=== PATIENT | male | born 1980 | race Hispanic/Latino ===

== ENCOUNTER → 2024-07-30 | Outpatient (CLI) | payer SELFPAY ==
[2024-07-30 16:26] LABS: CHOLESTEROL 111 mg/dL (<200); HDL CHOLESTEROL 71 mg/dL (29-71); LDL DIRECT 42 mg/dL (0-99); TRIGLYCERIDES 57 mg/dL (30-200)
== END | disposition home or self-care (01) ==
LOC: LAB 13:09
PROVIDERS: ATTEND Student in an Organized Health Care Education/Training Program
DX: E78.2 Mixed hyperlipidemia (principal)
CPT/HCPCS: 36415; 80061

== ENCOUNTER 2024-12-30 06:33 | Emergency (ER) | payer SELFPAY ==
[~2024-12-30] VITALS: Ht 185.4 cm; Wt 100.7 kg
[2024-12-30 06:34] VITALS: BP 169/99; PULSE 95; RESP 20; TEMP 98
[2024-12-30] MEDS: GABAPENTIN 300 MG CAPSULE PO ONE (07:25)
[2024-12-30 07:29] LABS: IMMATURE GRANULOCYTE ABSOLUTE 0.01 K/uL (0-1); NUCLEATED RED BLOOD CELLS 0.0 % (0.0-0.19); PLATELET COUNT (AUTO) 149 K/uL (130-400); RED BLOOD CELL COUNT(AUTO) 4.70 MIL/uL (4.50-6.20); RED CELL DISTRIBUTION WIDTH 12.0 % (11.0-15.5); WHITE BLOOD COUNT (AUTO) 5.8 K/uL (4.8-10.8)
[2024-12-30 07:36] LABS: CREATININE 0.7 mg/dL (0.5-1.3); GLOMERULAR FILTR. RATE CALC 117.0 mL/min (>90); GLUCOSE,RANDOM 126.0 mg/dL (70-105); SODIUM SERUM 140.0 mmol/L (136-145); UREA NITROGEN, BLOOD 9.0 mg/dL (7-18)
[2024-12-30] MEDS: ORPHENADRINE 60MG/2ML IM ONE (08:12)
[2024-12-30] MEDS: TRIAMCINOLONE ACETONIDE 40 MG/ML 1ML VIAL IM ONE (08:14)
--- NOTE | 2024-12-30 08:17 | ERN ---
General Chief Complaint: Lower Extremity Pain/Injury Stated Complaint: RT LEG PAIN Time Seen by MD: 07:02 Source: patient History of Present Illness Initial Comments Patient is a 44-year-old gentleman coming in complaining of right lower extremity pain. He states that the pain initiates in the right gluteal region and radiates down the right hamstring area. Patient attributes the pain to physical activity he was performed yesterday. States he was carrying some windows and doing some stretches. He states that once asleep woke up with this pain. Allergies: Coded Allergies: No Known Allergies (Unverified Allergy, Unknown, 12/30/24) Past Medical History Past Medical History: Diabetes-Type II Past Surgical History: Other Surgical History Other: CARDIAC STENT ROS Dictation CONSTITUTIONAL: No chills, no fever, no weakness, no diaphoresis, no malaise. HEAD/FACE: No signs of trauma. EENT: No eye pain, no blurred vision, no tearing, no double vision, no ear pain, no ear discharge, no nose pain, no nasal congestion, no throat pain, no throat swelling, no mouth pain. RESPIRATORY: No cough, no orthopnea, no SOB, no stridor, no wheezing. CARDIOVASCULAR: No chest pain, no edema, no palpitations, no syncope. GASTROINTESTINAL/ABDOMINAL: No abdominal pain, no constipation, no diarrhea, no nausea, no vomiting. GENITOURINARY: No abnormal discharge, no dysuria, no frequent urination, no hematuria. No complaints of pain in the genitals. MUSCULOSKELETAL: No back pain, no gout, no joint pain, no joint swelling, muscle pain, muscle stiffness, no neck pain. INTEGUMENTARY: No change in color, no change in hair/nails, no dryness, no lesion, no lumps, no rash. NEUROLOGICAL/PSYCH: No anxiety, not depressed, no emotional problem, no headache, no numbness, no pre-existing deficit, no history of seizures, no tremors, no weakness. HEMATOLOGIC/LYMPHATIC: Not anemic, no history of blood clots, no apparent bleeding, no bruising, glands not swollen. All Systems Negative, Except as Noted. Physical Exam Physical Exam Dictation VITAL SIGNS: Reviewed. GENERAL APPEARANCE: Alert, oriented x3, no acute distress, obese. HEAD AND FACE: Non-traumatic. EYES: PERRL, pink conjunctivas, eyelid no trauma, anterior chamber clear. EARS: Pinnas intact and no signs of trauma or erythema. Ear canals clear and no discharge. TMs no erythema. NOSE: No discharge, no bleeding. OROPHARYNX: Mouth normal, teeth no caries, tongue pink. Pharynx clear, no erythema. Tonsils no exudates, no abscesses noted. Mucous membrane moist. NECK: Supple, non-tender, no thyromegaly, no masses, no JVD, no bruits. BREAST: Deferred. CHEST: No tenderness, no crepitus, no paradoxical movement, no retractions. LUNGS: Clear, well-ventilated, symmetric, no rales, no wheezing, no rhonchi, no stridor, good breath sounds bilaterally. HEART: Regular rate, regular rhythm, no murmur, no gallops. VASCULAR: No peripheral edema. ABDOMEN: Soft, positive bowel sounds, nondistended, no guarding, nontender, no rebound, no masses no hepatomegaly, no splenomegaly, no Lobo's sign, no hernias. RECTAL: Deferred. GENITAL: Deferred. NEUROLOGICAL: Normal speech, gross motor function intact, gross sensory function intact. MUSCULOSKELETAL: Neck nontender, full range of motion, back nontender, full range of motion. EXTREMITIES: Nontender, full range of motion. Right piriformis muscle tenderness on palpation, pain on flexion and extension of the right hip. SKIN: Color pink, dry, no turgor, no rash, no lacerations, no abrasions, no contusions. LYMPHATICS: Deferred. Results Laboratory and Microbiology Lab and Micro Result Laboratory Tests Test 12/30/24 07:17 White Blood Count 5.8 K/uL (4.8-10.8) Red Blood Count 4.70 MIL/uL (4.50-6.20) Hemoglobin 14.2 g/dL (14.0-18.0) Hematocrit 41.3 % (42-54) L Mean Corpuscular Volume 87.9 fL (79-99) Mean Corpuscular Hemoglobin 30.2 pg (27.0-33.0) Mean Corpuscular Hemoglobin Concent 34.4 g/dL (32.0-36.0) Red Cell Distribution Width 12.0 % (11.0-15.5) Platelet Count 149 K/uL (130-400) Mean Platelet Volume 9.8 fL (7.5-10.5) Immature Granulocyte % (Auto) 0.2 % (0-1) Neutrophils (%) (Auto) 62.4 % (40.0-77.0) Lymphocytes (%) (Auto) 23.0 % (21.0-51.0) Monocytes (%) (Auto) 12.5 % (3.0-13.0) Eosinophils (%) (Auto) 1.4 % (0.0-8.0) Basophils (%) (Auto) 0.5 % (0.0-5.0) Neutrophils # (Auto) 3.6 K/uL (1.8-7.7) Lymphocytes # (Auto) 1.3 K/uL (1.0-4.8) Monocytes # (Auto) 0.7 K/uL (0.1-1.0) Eosinophils # (Auto) 0.08 K/uL (0.00-0.70) Basophils # (Auto) 0.03 K/uL (0.00-0.20) Absolute Immature Granulocyte (auto 0.01 K/uL (0-1) Nucleated Red Blood Cells 0.0 % (0.0-0.19) Sodium Level 140 mmol/L (136-145) Potassium Level 4.0 mmol/L (3.5-5.1) Chloride Level 107 mmol/L (101-111) Carbon Dioxide Level 26 mmol/L (21-32) Blood Urea Nitrogen 9 mg/dL (7-18) Creatinine 0.7 mg/dL (0.5-1.3) Glomerular Filtration Rate Calc 117 mL/min (>90) Random Glucose 126 mg/dL (70-105) H Total Calcium 8.8 mg/dL (8.5-10.1) Labs Reviewed?: Yes MDM MDM: Differential diagnosis: Sciatica of the right leg, muscle strain, muscle spasms, Rationale: Tests considered and ordered secondary to shared decision making i nclude: Previous outside records reviewed: Old ER visits. Risk of complication and/or morbidity or mortality of patient management: None Medications-Per medication reconciliation Need for hospitalization: Patient does not meet criteria for hospitalization. Patient is a 44-year-old gentleman coming in complaining of right leg pain. Per patient the pain began earlier in the morning. Patient received antispasmodics and anti-inflammatories states his symptoms improved. Patient will be discharged in stable condition with a diagnosis of right piriformis and right- sided sciatica. Medication will be provided for symptomatic relief as well for home it did advised him appropriate follow up with PCP and medical claims specialist for ongoing physical therapy for long-term management. ED Course Orders Procedure Category Date Status Time Cbc With Differential LAB 12/30/24 Complete 06:55 Basic Metabolic Panel LAB 12/30/24 Complete 06:55 Gabapentin 300 Mg Cap PHA 12/30/24 Complete (Neurontin 300 Mg 07:00 Orphenadrine Citrate PHA 12/30/24 Complete (Norflex) 08:00 Triamcinolone Acet PHA 12/30/24 Complete 40mg/Ml 1ml (Kenalog 08:00 Current Medications Medications (Trade) Dose Ordered Sig/Chiquita Route PRN Reason Start Time Stop Time Status Last Admin Dose Admin Gabapentin (NEURontin 300 MG CAP) 300 mg ONCE ONCE PO 12/30/24 07:00 12/30/24 07:01 DC 12/30/24 07:25 Orphenadrine Citrate (Norflex) 60 mg ONCE ONCE IM 12/30/24 08:00 12/30/24 08:01 DC 12/30/24 08:12 Triamcinolone Acetonide (Kenalog 40) 40 mg ONCE ONCE IM 12/30/24 08:00 12/30/24 08:01 DC 12/30/24 08:14 Vital Signs Date Time Temp Pulse Resp B/P (MAP) Pulse Ox O2 Delivery O2 Flow Rate FiO2 12/30/24 06:34 98.1 95 20 169/99 99 Room Air DX & DISP Disposition: Discharge Departure Impression: Primary Impression: Right sided sciatica Additional Impression: Piriformis muscle pain Condition: Stable Scripts Naproxen (Naproxen) 500 Mg Tablet 1 TAB PO BID for pain for 7 Days, #14 TAB 0 Refills Prov: ALANA HARRY MD 12/30/24 Methocarbamol (Robaxin) 750 Mg Tab 1 TAB PO BID for 7 Days, #14 TAB 0 Refills Prov: ALANA HARRY MD 12/30/24 Additional Instructions: FOLLOW-UP WITH PRIMARY CARE PROVIDER IN 1 TO 2 DAYS. TAKE MEDICATIONS DIRECTED HERE IN THE EMERGENCY ROOM. OKAY TO CONTINUE HOME MEDICATIONS UNLESS OTHERWISE DISCUSSED DURING YOUR VISIT IN THE EMERGENCY ROOM TODAY. RETURN TO YOUR NEAREST EMERGENCY ROOM IF SYMPTOMS WORSEN OR IF THERE IS NO IMPROVEMENT. CALL 911 IF YOU NEED IMMEDIATE ASSISTANCE. TAKE TYLENOL [id number] NEEDED AND IF NO CONTRAINDICATIONS ARE PRESENT. INCREASE ORAL HYDRATION. A WOUND CULTURE OR URINE CULTURE WAS ORDERED HERE IN THE EMERGENCY ROOM DEPARTMENT PLEASE FOLLOW-UP WITH PRIMARY CARE PROVIDER AND ADVISE THEM TO GET REPORTS FROM OUR FACILITY. IF YOU HAD ANY LUIS WRAP/SPLINTS THAT WERE APPLIED HERE, PLEASE DO NOT REMOVE THEM UNTIL YOU SEE YOUR PRIMARY CARE OR SPECIALTY. Referrals: Referrals: NONE (PCP) INGRID GONZALEZ MD, LUIS A MD Time of Disposition: 08:44 ALANA HARRY MD Dec 30, 2024 08:17
[2024-12-30] MEDS ORDERED: METH-662 PO (08:44)
[2024-12-30] MEDS ORDERED: NAPR-1194 PO (08:44)
[2024-12-30] MEDS ORDERED: METH8TAB PO (09:05)
== END 2024-12-30 09:00 | disposition home or self-care (01) ==
LOC: EDH 06:33
DX: M54.31 Sciatica, right side (principal); M79.10 Myalgia, unspecified site; E11.9 Type 2 diabetes mellitus without complications; Z95.5 Presence of coronary angioplasty implant and graft
CPT/HCPCS: 99284; 80048; 85025; 36415; 96372 ×2; J3301; J2360